=== PATIENT | male | born 1965 | race Two or more races ===

== ENCOUNTER 2017-12-12 23:08 | Emergency (ER) | payer BC ==
[~2017-12-12] VITALS: Ht 177.8 cm; Wt 85.4 kg
[2017-12-12 23:12] VITALS: Ht 177.8 cm; Wt 85.4 kg
[2017-12-12 23:42] LABS: BASOPHIL % 0.9 % (0-2); PLATELET COUNT 240 x10^3mcL (130-400); RED CELL DISTRIBUTION WIDTH 13.4 % (11.5-14.5)
[2017-12-13 00:01] LABS: CALCIUM 9.8 mg/dL (8.5-10.1); CARBON DIOXIDE 24.1 mmol/L (21-32); CHLORIDE SERUM 102 mmol/L (98-107); CREATININE SERUM 1.2 mg/dL (0.7-1.3); GFR1 > 60 mL/min; GLUCOSE SERUM 125 mg/dL (74-106); POTASSIUM SERUM 3.6 mmol/L (3.5-5.1); SODIUM SERUM 140 mmol/L (136-145)
[2017-12-13 00:06] LABS: ALBUMIN 4.4 g/dL (3.4-5.0); ALKALINE PHOSPHATASE 74 U/L (46-116); ALT/SGPT 33 U/L (16-63); AST/SGOT 18 U/L (15-37); BILIRUBIN TOTAL 0.5 mg/dL (0.20-1.00); LIPASE 135 IU/L (73-393); TOTAL PROTEIN, SERUM 7.6 g/dL (6.4-8.2)
[2017-12-13 02:10] VITALS: BP 108/66
== END 2017-12-13 02:10 | disposition home or self-care (01) ==
LOC: ED 23:08
PROVIDERS: Emergency Medicine
DX: R07.9 Chest pain, unspecified (principal); R10.13 Epigastric pain; R11.2 Nausea with vomiting, unspecified
CPT/HCPCS: J2060; J2405; J7030

== ENCOUNTER 2019-07-31 22:11 | Emergency (ER) | payer BC ==
[2019-07-31 22:23] VITALS: Ht 177.8 cm
[2019-07-31 23:19] VITALS: BP 128/85
== END 2019-07-31 23:19 | disposition home or self-care (01) ==
LOC: ED 22:11
DX: M79.601 Pain in right arm (principal); T75.00XA Unspecified effects of lightning, initial encounter; Y93.89 Activity, other specified; Y92.89 Other specified places as the place of occurrence of the external cause; Y99.8 Other external cause status
CPT/HCPCS: J1885